=== PATIENT | female | born 1970 | race Caucasian/White ===

== ENCOUNTER 2017-07-20 11:03 | Observation (INO) ==
[2017-07-20] MEDS ORDERED: ASPIRIN 325 MG TABLET PO STA (11:13)
[2017-07-20] MEDS ORDERED: ASPIRIN 325 MG TABLET ONE (11:54)
[2017-07-20 12:14] LABS: Basophils % 0.4 % (0.0-0.8); Eosinophils # 0.3 10*3/uL (0.0-0.87); Eosinophils % 3.6 % (0.00-10.9); Hematocrit 38.1 VOL% (35.7-47.0); Hemoglobin 12.5 GM/DL (12.0-16.0); Immature Granulocytes % 0.3 %; Immature Granulocytes Absolute 0.02 #; Lymphocytes # 1.5 10*3/uL (1.4-4.0); Lymphocytes % 20.4 % (21.3-54.2); Mean Corpuscular HGB Conc 32.8 GM/DL (32-36); Mean Corpuscular Hemoglobin 29 PG (27-34); Mean Corpuscular Volume 88.6 FL (87-102); Mean Platelet Volume 11.3 FL (9.6-12.0); Monocytes # 0.5 10*3/uL (0.11-0.8); Neutrophils # 4.9 10*3/uL (1.4-7.4); Neutrophils % 68.3 % (38.7-73.9); Platelet Count 237 T/CUMM (130-400); Red Cell Distribution Width 12.4 % (9.3-17.3); White Blood Count 7.2 T/CUMM (4-12)
[2017-07-20 12:19] LABS: Apearance,Urine CLEAR (Clear); Bacteria,Urine Occasional /HPF (Few); Bilirubin,Urine Negative (Negative); Blood, Urine Small mg/dL (Negative); Glucose,Urine (UA) Negative (Negative); Ketones,Urine Negative (Negative); Nitrite,Urine Negative (Negative); Protein,Urine Negative; Squamous Epithelial Cell,Urine Occasional /HPF (0-10); Urine Color Straw (Yellow); Urine Specific Gravity 1.003 (1.001-1.035); Urine Urobilinogen < 2.0 EU/DL (0.2-1.0); WBC,Urine <1 /HPF (0-6)
[2017-07-20 12:23] LABS: INR 0.9; Partial Thromboplastin Time 24.5 SECS (0-40)
[2017-07-20 12:41] LABS: Barbiturates Screen,Urine Negative (Negative); Benzodiazepines Screen,Urine Negative (Negative); Cannabinoid Screen,Urine Negative (Negative); Opiate Screen,Urine Negative (Negative); Phencyclidine Screen,Urine Negative (Negative)
[2017-07-20 12:51] LABS: Albumin 3.5 G/DL (3.4-5.0); Bilirubin,Total 0.7 MG/DL (0.2-1.0); Osmolality,Calculated 276.4 MOS/KG (273-304); Potassium 3.7 MMOL/L (3.5-5.1); Total Protein 7.3 G/DL (6.4-8.3)
[2017-07-20] MEDS ORDERED: MORPHINE 2 MG/1 ML SYRINGE IV PRN (14:28)
[2017-07-20] MEDS ORDERED: DOCUSATE SODIUM 100 MG CAPSULE PO PRN (14:28)
[2017-07-20] MEDS ORDERED: ONDANSETRON 4 MG/2 ML VIAL IV PRN (14:28)
[2017-07-20] MEDS ORDERED: diphenhydrAMINE CAP 25 MG CAPSULE PO PRN (14:28)
[2017-07-20] MEDS ORDERED: guaiFENesin/DM ER 600-30 MG TABLET PO PRN (14:28)
[2017-07-20] MEDS ORDERED: SODIUM CHLORIDE 0.9% 1,000 ML IV SCH (14:30)
[2017-07-20] MEDS ORDERED: ENOXAPARIN 40 MG/0.4 ML SYRINGE SUBCUT SCH (15:00)
[2017-07-20] MEDS: NITROGLYCERIN 0.2 MG/HR PATCH TRANSDERM SCH (18:08)
[2017-07-20] MEDS: PANTOPRAZOLE 40 MG TABLET PO SCH (18:08)
[2017-07-20] MEDS: ENOXAPARIN 60 MG/0.6 ML SYRINGE SUBCUT SCH (18:09)
[2017-07-20] MEDS: METOPROLOL TARTRATE 25 MG TABLET PO SCH (20:41)
[2017-07-20] MEDS: ACETAMINOPHEN 325 MG TABLET PO PRN (20:44)
[2017-07-20] MEDS ORDERED: ROSUVASTATIN 10 MG TABLET PO SCH (21:00)
[2017-07-20 21:59] LABS: Troponin I Only < 0.015 NG/ML (0.00-0.045)
[2017-07-21] MEDS: ACETAMINOPHEN 325 MG TABLET PO PRN ×3 (00:25→09:11)
[2017-07-21 04:43] LABS: Basophils % 0.5 % (0.0-0.8); Eosinophils # 0.2 10*3/uL (0.0-0.87); Hematocrit 34.1 VOL% (35.7-47.0); Hemoglobin 11.3 GM/DL (12.0-16.0); Immature Granulocytes % 0.2 %; Immature Granulocytes Absolute 0.01 #; Lymphocytes % 30.4 % (21.3-54.2); Mean Corpuscular HGB Conc 33.1 GM/DL (32-36); Mean Corpuscular Hemoglobin 29 PG (27-34); Mean Corpuscular Volume 88.6 FL (87-102); Mean Platelet Volume 11.6 FL (9.6-12.0); Monocytes # 0.6 10*3/uL (0.11-0.8); Monocytes % 8.7 % (1.7-12.7); Neutrophils # 3.8 10*3/uL (1.4-7.4); Neutrophils % 57.2 % (38.7-73.9); Platelet Count 213 T/CUMM (130-400); Red Blood Count 3.85 MC/CUMM (3.8-5.5); Red Cell Distribution Width 12.4 % (9.3-17.3); White Blood Count 6.6 T/CUMM (4-12)
[2017-07-21] MEDS: ENOXAPARIN 60 MG/0.6 ML SYRINGE SUBCUT SCH (05:00)
[2017-07-21 05:16] LABS: Calcium 8.5 MG/DL (8.5-10.1); Magnesium 2.1 MG/DL (1.8-2.4); Osmolality,Calculated 278.3 MOS/KG (273-304); Potassium 4.2 MMOL/L (3.5-5.1)
[2017-07-21 05:21] LABS: Risk Ratio 2.45
[2017-07-21] MEDS ORDERED: ASPIRIN EC 81 MG TABLET PO SCH (09:00)
[2017-07-21] MEDS: METOPROLOL TARTRATE 25 MG TABLET PO SCH (09:10)
[2017-07-21] MEDS: PANTOPRAZOLE 40 MG TABLET PO SCH (09:10)
[2017-07-21] MEDS ORDERED: DIAZEPAM 5 MG TABLET ONE (09:11)
[2017-07-21] MEDS ORDERED: diphenhydrAMINE CAP 50 MG CAPSULE ONE (09:11)
[2017-07-21] MEDS: NITROGLYCERIN 0.2 MG/HR PATCH TRANSDERM SCH (09:12)
[2017-07-21] MEDS ORDERED: DIAZEPAM 5 MG TABLET PO ONE (09:13)
[2017-07-21] MEDS ORDERED: diphenhydrAMINE CAP 50 MG CAPSULE PO ONE (09:13)
[2017-07-21] MEDS ORDERED: LIDOCAINE 1% 20 ML VIAL ONE (09:33)
[2017-07-21] MEDS ORDERED: MIDAZOLAM 2 MG/2 ML VIAL ONE (09:34)
[2017-07-21] MEDS ORDERED: MEPERIDINE 25 MG/1 ML VIAL ONE ×2 (09:34→09:53)
[2017-07-21] MEDS ORDERED: ONDANSETRON 4 MG/2 ML VIAL ONE (09:38)
[2017-07-21] MEDS ORDERED: SODIUM CHLORIDE 0.9% 1,000 ML IV SCH (11:00)
[2017-07-21 17:12] VITALS: BP 125/55
== END 2017-07-21 18:30 | disposition home or self-care (01) ==
LOC: N.EDINP 11:03 → N.ED 11:03 → N.TELEN 17:27
PROVIDERS: ADMIT Internal Medicine Infectious Disease; ATTEND Internal Medicine Infectious Disease
PROC: CLCCHCL (ICD-10-PCS; 2017-07-21 09:45)

== ENCOUNTER 2021-09-05 12:34 | Inpatient (IN) ==
[2021-09-05] MEDS ORDERED: SODIUM CHLORIDE 0.9% 1,000 ML IV STA (13:41)
[2021-09-05] MEDS ORDERED: ONDANSETRON 4 MG/2 ML VIAL IV STA (13:41)
[2021-09-05 13:59] LABS: Basophils # 0.1 10*3/uL (0.0-0.2); Basophils % 0.6 % (0.0-0.8); Eosinophils # 0.2 10*3/uL (0.0-0.87); Eosinophils % 2.1 % (0.00-10.9); Hematocrit 34.4 VOL% (35.7-47.0); Hemoglobin 10.5 GM/DL (12.0-16.0); Immature Granulocytes % 0.5 %; Immature Granulocytes Absolute 0.05 #; Lymphocytes # 1.9 10*3/uL (1.4-4.0); Lymphocytes % 17.3 % (21.3-54.2); Mean Corpuscular HGB Conc 30.5 GM/DL (32-36); Mean Corpuscular Volume 81.3 FL (87-102); Mean Platelet Volume 10.9 FL (9.6-12.0); Monocytes % 7.6 % (1.7-12.7); NRBC # 0.02 10*3/uL; Neutrophils % 71.9 % (38.7-73.9); Platelet Count 329 T/CUMM (130-400); Red Blood Count 4.23 MC/CUMM (3.8-5.5); White Blood Count 10.7 T/CUMM (4-12)
[2021-09-05 14:19] LABS: Albumin 3.1 G/DL (3.4-5.0); Bilirubin,Total 1.2 MG/DL (0.20-1.00); Calcium 8.5 MG/DL (8.5-10.1); Osmolality,Calculated 268.1 MOS/KG (273-304); Potassium 3.5 MMOL/L (3.5-5.1); Total Protein 6.5 G/DL (6.4-8.2)
[2021-09-05 14:39] LABS: Bacteria,Urine Many /HPF (Few); Bilirubin,Urine Moderate mg/dL (Negative); Blood, Urine Small mg/dL (Negative); Glucose,Urine (UA) Negative (Negative); Ketones,Urine Negative (Negative); Mucus,Urine Occasional /LPF (Occasional); Nitrite,Urine Negative (Negative); Protein,Urine 100 MG/DL; RBC,Urine 3 /HPF (0-4); Squamous Epithelial Cell,Urine Many /HPF (0-10); Urine Appearance CLOUDY (Clear); Urine Color Amber (Yellow); Urine Specific Gravity 1.042 (1.001-1.035)
[2021-09-05] MEDS ORDERED: cefTRIAXone 1,000 MG in SODIUM CHLORIDE 0.9% 100 ML IV STA (14:41)
[2021-09-05] MEDS ORDERED: ONDANSETRON 4 MG/2 ML VIAL IV PRN (14:45)
[2021-09-05] MEDS ORDERED: SODIUM CHLORIDE 0.9% 1,000 ML IV SCH (15:00)
[2021-09-05] MEDS: ENOXAPARIN 40 MG/0.4 ML SYRINGE SUBCUT SCH (15:24)
[2021-09-05] MEDS: SODIUM CHLORIDE 0.9% 1,000 ML IV SCH (15:25)
[2021-09-05 16:16] LABS: Albumin 2.9 G/DL (3.4-5.0); Bilirubin,Total 1.2 MG/DL (0.20-1.00); Osmolality,Calculated 271.8 MOS/KG (273-304); Potassium 3.7 MMOL/L (3.5-5.1); Total Protein 6.2 G/DL (6.4-8.2)
[2021-09-05] MEDS: carvediloL 3.125 MG TABLET PO SCH ×2 (17:23→22:28)
[2021-09-05] MEDS: SACUBITRIL/VALSARTAN 49-51 MG TABLET PO SCH ×2 (17:23→22:27)
[2021-09-05] MEDS: PROMETHAZINE 25 MG TABLET PO PRN ×2 (17:28→22:26)
[2021-09-05] MEDS ORDERED: carvediloL 3.125 MG TABLET PO SCH (21:00)
[2021-09-05] MEDS: ACETAMINOPHEN 325 MG TABLET PO PRN (22:25)
[2021-09-05] MEDS: DOCUSATE SODIUM 100 MG CAPSULE PO SCH (22:26)
[2021-09-05] MEDS: CALCIUM CARBONATE PO SCH (22:27)
[2021-09-06] MEDS: carvediloL 3.125 MG TABLET PO SCH ×4 (04:29→21:32)
[2021-09-06 06:11] LABS: Albumin 2.2 G/DL (3.4-5.0); Bilirubin,Total 0.8 MG/DL (0.20-1.00); Osmolality,Calculated 275.4 MOS/KG (273-304); Potassium 3.8 MMOL/L (3.5-5.1)
[2021-09-06 06:24] LABS: Basophils # 0.1 10*3/uL (0.0-0.2); Basophils % 0.8 % (0.0-0.8); Eosinophils # 0.4 10*3/uL (0.0-0.87); Eosinophils % 5.8 % (0.00-10.9); Hematocrit 31.8 VOL% (35.7-47.0); Hemoglobin 9.4 GM/DL (12.0-16.0); Immature Granulocytes % 0.4 %; Immature Granulocytes Absolute 0.03 #; Lymphocytes # 2.8 10*3/uL (1.4-4.0); Lymphocytes % 36.6 % (21.3-54.2); Mean Corpuscular HGB Conc 29.6 GM/DL (32-36); Mean Corpuscular Volume 83.7 FL (87-102); Mean Platelet Volume 11.1 FL (9.6-12.0); Neutrophils % 43.4 % (38.7-73.9); Platelet Count 270 T/CUMM (130-400); Red Cell Distribution Width 16.2 % (9.3-17.3); White Blood Count 7.6 T/CUMM (4-12)
[2021-09-06] MEDS: BUDESONIDE 0.25 MG/2 ML NEB RESP TX SCH (09:00)
[2021-09-06] MEDS ORDERED: AMITRIPTYLINE 10 MG TABLET PO SCH (09:00)
[2021-09-06] MEDS: DOCUSATE SODIUM 100 MG CAPSULE PO SCH ×2 (09:03→20:33)
[2021-09-06] MEDS: SACUBITRIL/VALSARTAN 49-51 MG TABLET PO SCH ×2 (09:03→20:33)
[2021-09-06] MEDS: CETIRIZINE 10 MG TABLET PO SCH (09:03)
[2021-09-06] MEDS: ASPIRIN EC 81 MG TABLET PO SCH (09:03)
[2021-09-06] MEDS: PANTOPRAZOLE 40 MG TABLET PO SCH (09:03)
[2021-09-06] MEDS: ESCITALOPRAM 10 MG TABLET PO SCH (09:04)
[2021-09-06] MEDS: CALCIUM CARBONATE PO SCH ×2 (09:04→20:33)
[2021-09-06] MEDS: FUROSEMIDE 40 MG/4 ML VIAL IV SCH (09:04)
[2021-09-06] MEDS ORDERED: POTASSIUM CHLORIDE 10 MEQ TABLET PO ONE (10:06)
[2021-09-06] MEDS ORDERED: POTASSIUM CHLORIDE 20 MEQ TABLET PO ONE (10:08)
[2021-09-06] MEDS: SODIUM CHLORIDE 0.9% 1,000 ML IV SCH (13:10)
[2021-09-06] MEDS: cefTRIAXone 1,000 MG in SODIUM CHLORIDE 0.9% 100 ML IV SCH (15:23)
[2021-09-06] MEDS: ENOXAPARIN 40 MG/0.4 ML SYRINGE SUBCUT SCH (15:24)
[2021-09-06] MEDS: AMITRIPTYLINE 10 MG TABLET PO SCH (20:33)
[2021-09-07] MEDS: carvediloL 3.125 MG TABLET PO SCH ×4 (03:54→21:35)
[2021-09-07 06:39] LABS: Albumin 2.3 G/DL (3.4-5.0); Bilirubin,Total 0.7 MG/DL (0.20-1.00); Calcium 7.7 MG/DL (8.5-10.1); Osmolality,Calculated 280.1 MOS/KG (273-304); Potassium 3.6 MMOL/L (3.5-5.1); Total Protein 5.1 G/DL (6.4-8.2)
[2021-09-07] MEDS: BUDESONIDE 0.25 MG/2 ML NEB RESP TX SCH (07:00)
[2021-09-07] MEDS: FUROSEMIDE 40 MG/4 ML VIAL IV SCH (09:26)
[2021-09-07] MEDS: ASPIRIN EC 81 MG TABLET PO SCH (09:27)
[2021-09-07] MEDS: DOCUSATE SODIUM 100 MG CAPSULE PO SCH ×2 (09:27→21:35)
[2021-09-07] MEDS: ESCITALOPRAM 10 MG TABLET PO SCH (09:27)
[2021-09-07] MEDS: SACUBITRIL/VALSARTAN 49-51 MG TABLET PO SCH ×2 (09:27→21:35)
[2021-09-07] MEDS: PANTOPRAZOLE 40 MG TABLET PO SCH (09:27)
[2021-09-07] MEDS: CETIRIZINE 10 MG TABLET PO SCH (09:28)
[2021-09-07] MEDS: CALCIUM CARBONATE PO SCH (09:29)
[2021-09-07] MEDS: ENOXAPARIN 40 MG/0.4 ML SYRINGE SUBCUT SCH (15:20)
[2021-09-07] MEDS: cefTRIAXone 1,000 MG in SODIUM CHLORIDE 0.9% 100 ML IV SCH (15:21)
[2021-09-07] MEDS ORDERED: FUROSEMIDE 40 MG/4 ML VIAL IV SCH (16:00)
[2021-09-07] MEDS: AMITRIPTYLINE 10 MG TABLET PO SCH (21:35)
[2021-09-08] MEDS: CALCIUM CARBONATE PO SCH ×2 (00:56→10:10)
[2021-09-08] MEDS: carvediloL 3.125 MG TABLET PO SCH ×4 (04:22→20:55)
[2021-09-08 06:24] LABS: Albumin 2.5 G/DL (3.4-5.0); Bilirubin,Total 1.7 MG/DL (0.20-1.00); Osmolality,Calculated 280.1 MOS/KG (273-304); Potassium 3.3 MMOL/L (3.5-5.1); Total Protein 5.5 G/DL (6.4-8.2)
[2021-09-08] MEDS ORDERED: BUDESONIDE 0.5 MG/2 ML NEB RESP TX ONE (07:01)
[2021-09-08] MEDS: BUDESONIDE 0.25 MG/2 ML NEB RESP TX SCH (07:52)
[2021-09-08] MEDS ORDERED: FUROSEMIDE 40 MG TABLET PO SCH (09:00)
[2021-09-08 09:20] LABS: Myeloperoxidase Antibody < 0.2 U
[2021-09-08] MEDS: ASPIRIN EC 81 MG TABLET PO SCH (10:08)
[2021-09-08] MEDS: ESCITALOPRAM 10 MG TABLET PO SCH (10:08)
[2021-09-08] MEDS: CETIRIZINE 10 MG TABLET PO SCH (10:08)
[2021-09-08] MEDS: SACUBITRIL/VALSARTAN 49-51 MG TABLET PO SCH (10:09)
[2021-09-08] MEDS: PANTOPRAZOLE 40 MG TABLET PO SCH (10:09)
[2021-09-08] MEDS: DOCUSATE SODIUM 100 MG CAPSULE PO SCH ×2 (10:10→20:55)
[2021-09-08] MEDS: POTASSIUM CHLORIDE 20 MEQ TABLET PO PRN ×3 (11:16→15:31)
[2021-09-08] MEDS: SODIUM CHLORIDE 0.9% 1,000 ML IV SCH (13:52)
[2021-09-08] MEDS: ACETAMINOPHEN 325 MG TABLET PO PRN (15:31)
[2021-09-08] MEDS: cefTRIAXone 1,000 MG in SODIUM CHLORIDE 0.9% 100 ML IV SCH (15:32)
[2021-09-08] MEDS: POLYETHYLENE GLYCOL POWDER 17 GM PACK PO SCH (15:34)
[2021-09-08] MEDS: ENOXAPARIN 40 MG/0.4 ML SYRINGE SUBCUT SCH (16:20)
[2021-09-08] MEDS ORDERED: carvediloL 6.25 MG TABLET PO SCH (17:00)
[2021-09-08] MEDS ORDERED: carvediloL 3.125 MG TABLET PO SCH (17:00)
[2021-09-08] MEDS: AMITRIPTYLINE 10 MG TABLET PO SCH (20:55)
[2021-09-09] MEDS: carvediloL 3.125 MG TABLET PO SCH ×2 (04:05→10:02)
[2021-09-09] MEDS: CALCIUM CARBONATE PO SCH ×2 (05:36→10:02)
[2021-09-09 05:50] LABS: % Iron Saturation 4.1 % (18-50); Ferritin 10.7 ng/mL (8-252)
[2021-09-09] MEDS: BUDESONIDE 0.25 MG/2 ML NEB RESP TX SCH (07:49)
[2021-09-09 08:07] VITALS: BP 94/51
[2021-09-09] MEDS ORDERED: SPIRONOLACTONE 25 MG TABLET PO SCH ×3 (09:00)
[2021-09-09 09:43] LABS: Albumin 2.9 G/DL (3.4-5.0); Bilirubin,Total 0.5 MG/DL (0.20-1.00); Osmolality,Calculated 276.4 MOS/KG (273-304); Potassium 3.8 MMOL/L (3.5-5.1); Total Protein 6.2 G/DL (6.4-8.2)
[2021-09-09] MEDS: POLYETHYLENE GLYCOL POWDER 17 GM PACK PO SCH (09:59)
[2021-09-09] MEDS: PANTOPRAZOLE 40 MG TABLET PO SCH (10:01)
[2021-09-09] MEDS: ESCITALOPRAM 10 MG TABLET PO SCH (10:01)
[2021-09-09] MEDS: DOCUSATE SODIUM 100 MG CAPSULE PO SCH (10:02)
[2021-09-09] MEDS: ASPIRIN EC 81 MG TABLET PO SCH (10:02)
[2021-09-09] MEDS: CETIRIZINE 10 MG TABLET PO SCH (10:02)
[2021-09-09] MEDS ORDERED: FUROSEMIDE 20 MG TABLET PO SCH (11:00)
[2021-09-09] MEDS ORDERED: FERROUS SULFATE 325 MG TABLET PO SCH (17:00)
== END 2021-09-09 12:12 | disposition home or self-care (01) | DRG 315 ==
LOC: N.EDINP 12:34 → N.ED 12:34 → N.5E 16:10
PROVIDERS: ADMIT Family Medicine; ATTEND Family Medicine